=== PATIENT | female | born 1985 | race American Indian/Alaskan Native ===

== ENCOUNTER 2016-10-13 23:43 | Emergency (ER) | payer MEDICAID, OTHER ==
[2016-10-14] MEDS ORDERED: TYLENOL PO ONE (01:52)
[2016-10-14] MEDS ORDERED: FLEXERIL PO ONE (04:19)
[2016-10-14] MEDS ORDERED: NORCO 5/325 PO ONE (04:19)
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
[2016-10-14 05:08] VITALS: BP 134/66
== END 2016-10-14 05:28 | disposition home or self-care (01) ==
LOC: ED 23:43
DX: M79.1 Myalgia (principal); V09.3XXA Pedestrian injured in unspecified traffic accident, initial encounter; Y93.89 Activity, other specified; Y92.89 Other specified places as the place of occurrence of the external cause; Y99.8 Other external cause status
CPT/HCPCS: 99282

== ENCOUNTER 2017-06-03 23:11 | Emergency (ER) | payer SELFPAY ==
[2017-06-04 00:09] LABS: BUN/Creatinine Ratio 17; Blood Urea Nitrogen 10 mg/dL (7-17); Calcium 8.8 mg/dL (8.4-10.2); Hemolysis Index 0
[2017-06-04] MEDS ORDERED: TORADOL IM ONE (00:15)
[2017-06-04] MEDS ORDERED: K-DUR PO ONE (00:15)
[2017-06-04] MEDS ORDERED: ULTRAM PO ONE (00:15)
[2017-06-04] MEDS ORDERED: NORVASC PO ONE (00:16)
[2017-06-04 00:31] LABS: Alanine Aminotransferase 15 units/L (7-56); Albumin 3.8 g/dL (3.9-5)
[2017-06-04 00:41] LABS: Bilirubin,Direct < 0.2 mg/dL (0-0.2)
--- NOTE | 2017-06-04 00:55 | Emergency Department Report ---
ED Extremity Problem HPI - General Chief complaint: Extremity Problem,Nontraumatic Stated complaint: BILATERAL ANKLE EDEMA; BODY PAIN Time Seen by Provider: 06/03/17 23:51 Source: patient, old records reviewed Mode of arrival: Ambulatory Limitations: No Limitations - History of Present Illness Initial comments: 32-year-old female with history of elevated blood pressure presents to the hospital complaints of bilateral lower extremity pain and swelling. Patient states she stands up and is on her feet a lot. She complains of intermittent swelling to her bilateral lower extremities and pain from the feet up to the knees. Pain is aching, constant, rated 8/10 in intensity, worse with palpation and ambulation. Patient states she is not wearing the appropriate shoes. Patient denies chest pain, shortness of breath, or fever. Patient presents with elevated blood pressure. Patient states that her blood pressure was high during her and has been intermittently high for the past 3 years. She denies since her blood pressure home and states it has been elevated. She does not have a primary care doctor is not currently on any blood pressure medication. She denies headache, chest pain, or blurred vision. Severity scale (0 -10): 8 - Related Data Home Medications Medication Instructions Recorded Confirmed Last Taken Vit No.126/Iron/Folic 1 tab QDAY 01/03/14 01/03/14 12/30/13 08:00 [Classic Tablet] Previous Rx's Medication Instructions Recorded Last Taken Type Ferrous Sulfate [Feosol 325 MG tab] 325 mg PO BID #60 tablet 12/31/13 Unknown Rx Ibuprofen [Motrin] 800 mg PO Q8H PRN #30 tablet 12/31/13 Unknown Rx [id number]/Iron Fum/Folic/Docusate 1 each PO QDAY #30 tablet 12/31/13 Unknown Rx [ 19 Tablet] Labetalol [Normodyne TAB] 300 mg PO TID #120 tablet 01/05/14 Unknown Rx NIFEdipine XL [Procardia Xl] 30 mg PO Q12HR #90 tablet 01/05/14 Unknown Rx Cyclobenzaprine [Flexeril] 10 mg PO TID PRN #15 tablet 10/14/16 Unknown Rx Ibuprofen [Motrin] 600 mg PO Q8H PRN #15 tablet 10/14/16 Unknown Rx HYDROcodone/APAP 5-325 [[place] 1 each PO Q6HR PRN #20 tablet 06/04/17 Unknown Rx 5-325 mg TAB] Ibuprofen [Motrin] 800 mg PO Q8HR PRN #30 tablet 06/04/17 Unknown Rx Potassium Chloride [K-Dur] 20 meq PO BID #4 tab 06/04/17 Unknown Rx amLODIPine [Norvasc] 5 mg PO DAILY #30 tab 06/04/17 Unknown Rx Allergies Allergy/AdvReac Type Severity Reaction Status Date / Time No Known Allergies Allergy Unverified 06/03/17 23:33 ED Review of Systems ROS: Stated complaint: BILATERAL ANKLE EDEMA; BODY PAIN Other details as noted in HPI Comment: All other systems reviewed and negative Other: Constitutional: No fevers chills Eyes: No eye pain visual changes or discharge ENT: No ear pain or throat pain Neck: Denies pain Respiratory: Denies cough wheezing shortness of breath Cardiovascular: Denies chest pain, palpitations, syncope GI: Denies abdominal pain, nausea, vomiting, diarrhea : Denies dysuria Musculoskeletal: As per HPI Skin: Denies rash, lesions, erythema Neurologic: Denies headache, numbness, weakness Psychiatric: Denies suicidal ideation, hallucinations ED Past Medical Hx - Past Medical History Previous Medical History?: Yes Hx Congestive Heart Failure: No Hx Diabetes: No Hx Renal Disease: Yes (Patient states that she had "kidney problems") Hx Asthma: No Hx COPD: No - Surgical History Past Surgical History?: Yes Additional Surgical History: X1 - Social History Smoking Status: Never Smoker Substance Use Type: None - Medications Home Medications: Home Medications Medication Instructions Recorded Confirmed Last Taken Type Ferrous Sulfate [Feosol 325 MG tab] 325 mg PO BID #60 tablet 12/31/13 Unknown Rx Ibuprofen [Motrin] 800 mg PO Q8H PRN #30 tablet 12/31/13 Unknown Rx [id number]/Iron Fum/Folic/Docusate 1 each PO QDAY #30 tablet 12/31/13 Unknown Rx [ 19 Tablet] Vit No.126/Iron/Folic 1 tab QDAY 01/03/14 01/03/14 12/30/13 08:00 History [Classic Tablet] Labetalol [Normodyne TAB] 300 mg PO TID #120 tablet 01/05/14 Unknown Rx NIFEdipine XL [Procardia Xl] 30 mg PO Q12HR #90 tablet 01/05/14 Unknown Rx Cyclobenzaprine [Flexeril] 10 mg PO TID PRN #15 tablet 10/14/16 Unknown Rx Ibuprofen [Motrin] 600 mg PO Q8H PRN #15 tablet 10/14/16 Unknown Rx HYDROcodone/APAP 5-325 [[place] 1 each PO Q6HR PRN #20 tablet 06/04/17 Unknown Rx 5-325 mg TAB] Ibuprofen [Motrin] 800 mg PO Q8HR PRN #30 tablet 06/04/17 Unknown Rx Potassium Chloride [K-Dur] 20 meq PO BID #4 tab 06/04/17 Unknown Rx amLODIPine [Norvasc] 5 mg PO DAILY #30 tab 06/04/17 Unknown Rx ED Physical Exam - General Limitations: No Limitations - Other Other exam information: General: No limitations, patient is alert in no acute distress Head exam: Atraumatic, normocephalic Eyes exam: Normal appearance ENT: Moist mucous membrane, normal oropharynx Neck exam: Normal inspection, full range of motion, no meningismus nontender Respiratory exam: Clear to auscultation bilateral, no wheezes, rales, crackles Cardiovascular: Normal rate and rhythm, normal heart sounds Abdomen: Soft, nondistended, and nontender, with normal bowel sounds, no rebound, or guarding Extremity: Full range of motion normal inspection no deformity. I do not appreciate any pitting edema. 2+ DP pulses. Generalized tenderness to palpation of the and legs below the knee. No warmth or erythema. No isolated calf tenderness Back: Normal Inspection, full range of motion, no tenderness Neurologic: Alert, oriented x3, cranial nerves intact, no motor or sensory deficit Psychiatric: normal affect, normal mood Skin: Warm, dry, intact ED Course Vital Signs 06/03/17 06/03/17 06/04/17 23:22 23:56 00:00 Temperature 97.9 F 98.3 F Pulse Rate 86 76 Respiratory 18 18 Rate Blood Pressure 159/115 152/102 Blood Pressure 158/101 [Left] O2 Sat by Pulse 99 99 100 Oximetry 06/04/17 06/04/17 06/04/17 00:30 00:41 01:00 Temperature Pulse Rate 76 Respiratory Rate Blood Pressure 164/117 168/114 155/110 Blood Pressure [Left] O2 Sat by Pulse 100 Oximetry 06/04/17 01:30 Temperature Pulse Rate Respiratory Rate Blood Pressure 158/107 Blood Pressure [Left] O2 Sat by Pulse 100 Oximetry - Reevaluation(s) Reevaluation #1: 06/04/17 00:56 Patient treated with by mouth potassium, Norvasc, tramadol, and IM Toradol ED Medical Decision Making - Lab Data Result diagrams: 06/03/17 23:38 06/03/17 23:38 Lab Results 06/03/17 06/03/17 06/04/17 Range/Units 23:38 23:38 00:01 WBC 7.0 (4.5-11.0) K/mm3 RBC 4.68 (3.65-5.03) M/mm3 Hgb 12.6 (10.1-14.3) gm/dl Hct 39.2 (30.3-42.9) % MCV 84 (79-97) fl MCH 27 L (28-32) pg MCHC 32 (30-34) % RDW 14.8 (13.2-15.2) % Plt Count 352 (140-440) K/mm3 Lymph % (Auto) 33.4 (13.4-35.0) % Dolores % (Auto) 7.3 (0.0-7.3) % Eos % (Auto) 5.6 H (0.0-4.3) % Baso % (Auto) 0.7 (0.0-1.8) % Lymph # 2.3 (1.2-5.4) K/mm3 Dolores # 0.5 (0.0-0.8) K/mm3 Eos # 0.4 (0.0-0.4) K/mm3 Baso # 0.0 (0.0-0.1) K/mm3 Seg Neutrophils % 53.0 (40.0-70.0) % Seg Neutrophils # 3.7 (1.8-7.7) K/mm3 Sodium 141 (137-145) mmol/L Potassium 3.0 L (3.6-5.0) mmol/L Chloride 101.2 (98-107) mmol/L Carbon Dioxide 26 (22-30) mmol/L Anion Gap 17 mmol/L BUN 10 (7-17) mg/dL Creatinine 0.6 L (0.7-1.2) mg/dL Estimated GFR > 60 ml/min BUN/Creatinine Ratio 17 % Glucose 119 H (65-100) mg/dL Calcium 8.8 (8.4-10.2) mg/dL Magnesium (1.7-2.3) mg/dL Total Bilirubin 0.20 (0.1-1.2) mg/dL Direct Bilirubin < 0.2 (0-0.2) mg/dL Indirect Bilirubin 0.0 mg/dL AST 16 (5-40) units/L ALT 15 (7-56) units/L Alkaline Phosphatase 74 (35-129) units/L NT-Pro-B Natriuret Pep 7.65 (0-450) pg/mL Total Protein 7.3 (6.3-8.2) g/dL Albumin 3.8 L (3.9-5) g/dL Albumin/Globulin Ratio 1.1 % 06/04/17 Range/Units 00:01 WBC (4.5-11.0) K/mm3 RBC (3.65-5.03) M/mm3 Hgb (10.1-14.3) gm/dl Hct (30.3-42.9) % MCV (79-97) fl MCH (28-32) pg MCHC (30-34) % RDW (13.2-15.2) % Plt Count (140-440) K/mm3 Lymph % (Auto) (13.4-35.0) % Dolores % (Auto) (0.0-7.3) % Eos % (Auto) (0.0-4.3) % Baso % (Auto) (0.0-1.8) % Lymph # (1.2-5.4) K/mm3 [place]ores # (0.0-0.8) K/mm3 Eos # (0.0-0.4) K/mm3 Baso # (0.0-0.1) K/mm3 Seg Neutrophils % (40.0-70.0) % Seg Neutrophils # (1.8-7.7) K/mm3 Sodium (137-145) mmol/L Potassium (3.6-5.0) mmol/L Chloride (98-107) mmol/L Carbon Dioxide (22-30) mmol/L Anion Gap mmol/L BUN (7-17) mg/dL Creatinine (0.7-1.2) mg/dL Estimated GFR ml/min BUN/Creatinine Ratio % Glucose (65-100) mg/dL Calcium (8.4-10.2) mg/dL Magnesium 1.70 (1.7-2.3) mg/dL Total Bilirubin (0.1-1.2) mg/dL Direct Bilirubin (0-0.2) mg/dL Indirect Bilirubin mg/dL AST (5-40) units/L ALT (7-56) units/L Alkaline Phosphatase (35-129) units/L NT-Pro-B Natriuret Pep (0-450) pg/mL Total Protein (6.3-8.2) g/dL Albumin (3.9-5) g/dL Albumin/Globulin Ratio % - Medical Decision Making Bilateral leg pain and edema No significant edema noted on exam Generalized tenderness to palpation below the knee No signs of heart failure, liver failure, kidney failure, DVT, or infection Patient received tramadol, Toradol with improvement mild improvement in pain. No occult ordered for additional pain relief Compression stockings advised during the day Hypertension History of hypertension but no meds Norvasc initiated in the ED and will be continued No signs of hypertensive emergency at time Hypokalemia Mild Normal magnesium By mouth potassium 40 mg given Potassium will be prescribed for home - Differential Diagnosis arthritis, renal failure, liver failure, heart failure, dependent edema Critical Care Time: No Critical care attestation.: If time is entered above; I have spent that time in minutes in the direct care of this critically ill patient, excluding procedure time. ED Disposition Clinical Impression: Bilateral leg edema, Bilateral leg pain, HTN (hypertension), Hypokalemia Disposition: TO HOME OR SELFCARE Is pt being admited?: No Does the pt Need Aspirin: No Condition: Stable Instructions: Hypertension (ED), Hypokalemia (ED) Additional Instructions: Take the medications as prescribed. It is very important that you follow up with a primary care doctor for further testing and evaluation of the current symptoms. Continue to to monitor your blood pressure because you're medications may need adjustment. Return if symptoms worsen as indicated by your discharge instructions. You may wear compression stockings during the daytime when you're on your feet to decrease swelling. You may get compression stockings at the local drug store. Prescriptions: amLODIPine [Norvasc] 5 mg PO DAILY #30 tab HYDROcodone/APAP 5-325 [[place] 5-325 mg TAB] 1 each PO Q6HR PRN #20 tablet PRN Reason: Pain Ibuprofen [Motrin] 800 mg PO Q8HR PRN #30 tablet PRN Reason: Pain Potassium Chloride [K-Dur] 20 meq PO BID #4 tab Referrals: CHELSY RODRIGUEZ MD [Primary Care Provider] - 3-5 Days [facility] [Provider Group] - 3-5 Days Forms: Work/School Release Form(ED) Time of Disposition: 02:19
[2017-06-04 00:56] LABS: Eosinophils # (Auto) 0.4 K/mm3 (0.0-0.4); Eosinophils % (Auto) 5.6 % (0.0-4.3); Hematocrit 39.2 % (30.3-42.9); Hemoglobin 12.6 gm/dl (10.1-14.3); Lymphocytes # (Auto) 2.3 K/mm3 (1.2-5.4); Lymphocytes % (Auto) 33.4 % (13.4-35.0); Mean Corpuscular HGB Conc 32 % (30-34); Mean Corpuscular Hemoglobin 27 pg (28-32); Mean Corpuscular Volume 84 fl (79-97); Monocytes # (Auto) 0.5 K/mm3 (0.0-0.8); Monocytes % (Auto) 7.3 % (0.0-7.3); Platelet Count 352 K/mm3 (140-440); Red Blood Count 4.68 M/mm3 (3.65-5.03); Red Cell Distribution Width 14.8 % (13.2-15.2)
[2017-06-04 00:59] LABS: Basophils % (Auto) 0.7 % (0.0-1.8)
[2017-06-04] MEDS ORDERED: NORCO 5/325 PO ONE (02:11)
[2017-06-04 03:07] VITALS: BP 126/87
== END 2017-06-04 03:26 | disposition home or self-care (01) ==
LOC: ED 23:11
DX: R60.0 Localized edema (principal); M79.605 Pain in left leg; M79.604 Pain in right leg; I10 Essential (primary) hypertension; E87.6 Hypokalemia
CPT/HCPCS: 36415; 80048; 80074; 83735; 83880; 85025; 96372; 99283; J1885

== ENCOUNTER 2017-07-09 15:16 | Emergency (ER) | payer SELFPAY ==
[2017-07-09 20:05] LABS: HCG Qualitative,Urine Negative (Negative)
[2017-07-09 20:10] LABS: Bacteria,Urine 1+ /HPF (Negative); Bilirubin,Urine NEG (Negative); Blood,Urine NEG (Negative); Color,Urine Yellow (Yellow); Mucus,Urine FEW /HPF; Protein,Urine <15 mg/dL mg/dL (Negative); Urobilinogen,Urine < 2.0 mg/dL (<2.0)
[2017-07-09] MEDS ORDERED: ROCEPHIN IM ONE (20:34)
[2017-07-09] MEDS ORDERED: XYLOCAINE 1% MPF 5 mL INFILTRATI ONE (20:34)
[2017-07-09] MEDS ORDERED: NORVASC PO ONE (21:02)
[2017-07-09] MEDS ORDERED: TYLENOL PO ONE (21:02)
--- NOTE | 2017-07-09 21:05 | Emergency Department Report ---
ED Female HPI - General Chief complaint: Pain General Stated complaint: BODY SORE/UTI Time Seen by Provider: 07/09/17 20:33 Source: patient Mode of arrival: Ambulatory Limitations: No Limitations - History of Present Illness Initial comments: This is a 32-year-old female nontoxic, well nourished in appearance, no acute signs of distress presents to the ED with c/o of dysuria and polyuria 1 week. Patient denies any urinary discharge, vaginal bleeding, abdominal pain, throat pain, chest pain, strength of breath, headache, stiff neck, numbness or tingling. Patient denies any hematuria. Patient also stated that she has body aches that is intermittent for one month. Patient state he has been taking Tylenol and Motrin with mild to moderate relief. Patient denies any back pain or URI symptoms. Patient denies any allergies or past medical history. MD Complaint: dysuria -: week(s) (1) Radiation: non-radiating Severity: mild Severity scale (0 -10): 8 Quality: burning Consistency: constant Improves with: none Worsens with: urination Are you Now?: No Associated Symptoms: dysuria. denies: vaginal discharge, vaginal bleeding, abdominal pain, nausea/vomiting, fever/chills, headaches, loss of appetite, hematuria, rash, seizure, shortness of breath, syncope, weakness - Related Data Home Medications Medication Instructions Recorded Confirmed Last Taken Vit No.126/Iron/Folic 1 tab QDAY 01/03/14 01/03/14 12/30/13 08:00 [Classic Tablet] Previous Rx's Medication Instructions Recorded Last Taken Type Ferrous Sulfate [Feosol 325 MG tab] 325 mg PO BID #60 tablet 12/31/13 Unknown Rx Ibuprofen [Motrin] 800 mg PO Q8H PRN #30 tablet 12/31/13 Unknown Rx Aex857/Iron Fum/Folic/Docusate 1 each PO QDAY #30 tablet 12/31/13 Unknown Rx [ 19 Tablet] Labetalol [Normodyne TAB] 300 mg PO TID #120 tablet 01/05/14 Unknown Rx NIFEdipine XL [Procardia Xl] 30 mg PO Q12HR #90 tablet 01/05/14 Unknown Rx Cyclobenzaprine [Flexeril] 10 mg PO TID PRN #15 tablet 10/14/16 Unknown Rx Ibuprofen [Motrin] 600 mg PO Q8H PRN #15 tablet 10/14/16 Unknown Rx HYDROcodone/APAP 5-325 [[place] 1 each PO Q6HR PRN #20 tablet 06/04/17 Unknown Rx 5-325 mg TAB] Ibuprofen [Motrin] 800 mg PO Q8HR PRN #30 tablet 06/04/17 Unknown Rx Potassium Chloride [K-Dur] 20 meq PO BID #4 tab 06/04/17 Unknown Rx amLODIPine [Norvasc] 5 mg PO DAILY #30 tab 06/04/17 Unknown Rx Sulfamethoxazole/Trimethoprim 1 each PO BID #14 tablet 07/09/17 Unknown Rx [Bactrim DS TAB] amLODIPine [Norvasc] 5 mg PO DAILY #30 tab 07/09/17 Unknown Rx traMADol [Ultram] 50 mg PO Q6HR PRN #12 tablet 07/09/17 Unknown Rx Allergies Allergy/AdvReac Type Severity Reaction Status Date / Time No Known Allergies Allergy Verified 07/09/17 16:33 ED Review of Systems ROS: Stated complaint: BODY SORE/UTI Other details as noted in HPI Constitutional: denies: chills, fever Eyes: denies: eye pain, eye discharge, vision change ENT: denies: ear pain, throat pain Respiratory: denies: cough, shortness of breath, wheezing Cardiovascular: denies: chest pain, palpitations Endocrine: no symptoms reported Gastrointestinal: denies: abdominal pain, nausea, diarrhea Genitourinary: denies: urgency, dysuria, discharge Musculoskeletal: denies: back pain, joint swelling, arthralgia Skin: denies: rash, lesions Neurological: denies: headache, weakness, paresthesias Psychiatric: denies: anxiety, depression Hematological/Lymphatic: denies: easy bleeding, easy bruising ED Past Medical Hx - Past Medical History Previous Medical History?: Yes Hx Congestive Heart Failure: No Hx Diabetes: No Hx Deep Vein Thrombosis: Yes Hx Pulmonary Embolism: Yes Hx Renal Disease: Yes (Patient states that she had "kidney problems") Hx Asthma: No Hx COPD: No - Surgical History Past Surgical History?: Yes Additional Surgical History: X1 - Social History Smoking Status: Never Smoker Substance Use Type: None - Medications Home Medications: Home Medications Medication Instructions Recorded Confirmed Last Taken Type Ferrous Sulfate [Feosol 325 MG tab] 325 mg PO BID #60 tablet 12/31/13 Unknown Rx Ibuprofen [Motrin] 800 mg PO Q8H PRN #30 tablet 12/31/13 Unknown Rx Emz168/Iron Fum/Folic/Docusate 1 each PO QDAY #30 tablet 12/31/13 Unknown Rx [ 19 Tablet] Vit No.126/Iron/Folic 1 tab QDAY 01/03/14 01/03/14 12/30/13 08:00 History [Classic Tablet] Labetalol [Normodyne TAB] 300 mg PO TID #120 tablet 01/05/14 Unknown Rx NIFEdipine XL [Procardia Xl] 30 mg PO Q12HR #90 tablet 01/05/14 Unknown Rx Cyclobenzaprine [Flexeril] 10 mg PO TID PRN #15 tablet 10/14/16 Unknown Rx Ibuprofen [Motrin] 600 mg PO Q8H PRN #15 tablet 10/14/16 Unknown Rx HYDROcodone/APAP 5-325 [[place] 1 each PO Q6HR PRN #20 tablet 06/04/17 Unknown Rx 5-325 mg TAB] Ibuprofen [Motrin] 800 mg PO Q8HR PRN #30 tablet 06/04/17 Unknown Rx Potassium Chloride [K-Dur] 20 meq PO BID #4 tab 06/04/17 Unknown Rx amLODIPine [Norvasc] 5 mg PO DAILY #30 tab 06/04/17 Unknown Rx Sulfamethoxazole/Trimethoprim 1 each PO BID #14 tablet 07/09/17 Unknown Rx [Bactrim DS TAB] amLODIPine [Norvasc] 5 mg PO DAILY #30 tab 07/09/17 Unknown Rx traMADol [Ultram] 50 mg PO Q6HR PRN #12 tablet 07/09/17 Unknown Rx ED Physical Exam - General Limitations: No Limitations General appearance: alert, in no apparent distress - Head Head exam: Present: atraumatic, normocephalic - Eye Eye exam: Present: normal appearance Pupils: Present: normal accommodation - ENT ENT exam: Present: normal exam, mucous membranes moist - Neck Neck exam: Present: normal inspection, full ROM. Absent: tenderness, meningismus - Respiratory Respiratory exam: Present: normal lung sounds bilaterally. Absent: respiratory distress, wheezes, rales, rhonchi, stridor, chest wall tenderness, accessory muscle use, decreased breath sounds, prolonged expiratory - Cardiovascular Cardiovascular Exam: Present: regular rate, normal rhythm, normal heart sounds. Absent: bradycardia, tachycardia, irregular rhythm, systolic murmur, diastolic murmur, rubs, gallop - GI/Abdominal GI/Abdominal exam: Present: soft, normal bowel sounds. Absent: distended, tenderness, guarding, rebound, rigid, diminished bowel sounds - Rectal Rectal exam: Present: deferred - Extremities Exam Extremities exam: Present: normal inspection, full ROM, normal capillary refill - Back Exam Back exam: Present: normal inspection, full ROM. Absent: tenderness, CVA tenderness (R), CVA tenderness (L), muscle spasm, paraspinal tenderness, vertebral tenderness, rash noted - Neurological Exam Neurological exam: Present: alert, oriented X3, normal gait - Psychiatric Psychiatric exam: Present: normal affect, normal mood - Skin Skin exam: Present: warm, dry, intact, normal color. Absent: rash ED Course Vital Signs 07/09/17 16:26 Temperature 98.5 F Pulse Rate 86 Respiratory 18 Rate Blood Pressure 153/102 O2 Sat by Pulse 100 Oximetry - Reevaluation(s) Reevaluation #1: 07/09/17 21:12 Patient is speaking in full sentences with no signs of distress noted. - Consultations Consultation #1: 07/09/17 21:12 Patient has been consulted with Dr. Mcfarland about patient history, physical exam, and labs and examined and screened patient and agrees to ED plan of care and discharge plan of care. ED Medical Decision Making - Medical Decision Making This is a 32-year-old female that presents with UTI and body aches. Patient is stable and was examined by me and Dr. Mcfarland. He will he indicates UTI with elevated WBCs, leukocytes, and rbc's. There is no CVA tenderness. Patient received 1 g Rocephin in the ED patient is discharged with Bactrim. Patient also received Tylenol. Patient is requesting for several medication and Tylenol received Ultram and discharged for body aches. There is no URI symptoms or any other symptoms. Urine culture pending. Patient was instructed to Follow-up with a primary care doctor in 3-5 days or if symptoms worsen and continue return to emergency room as soon as possible. At time of discharge, the patient does not seem toxic or ill in appearance. No acute signs of distress noted. Patient agrees to discharge treatment plan of care. No further questions noted by the patient. Patient also stated that she is out of her amlodipine medication 5 mg daily so the patient received 1 dose here as well as a prescription to go home with. Critical care attestation.: If time is entered above; I have spent that time in minutes in the direct care of this critically ill patient, excluding procedure time. ED Disposition Clinical Impression: Body aches UTI (urinary tract infection) Qualifiers: Urinary tract infection type: site unspecified Hematuria presence: with hematuria Qualified Code(s): N39.0 - Urinary tract infection, site not specified ; R31.9 - Hematuria, unspecified Hypertension Qualifiers: Hypertension type: unspecified Qualified Code(s): I10 - Essential (primary) hypertension Disposition: TO HOME OR SELFCARE Is pt being admited?: No Does the pt Need Aspirin: No Condition: Stable Instructions: Urinary Tract Infection in Women (ED), Hypertension (ED), Sulfamethoxazole/Trimethoprim (By mouth) Additional Instructions: Follow-up with a primary care doctor in 3-5 days or if symptoms worsen and continue return to emergency room as soon as possible. Keep a daily diary of her blood pressure and presented to primary care doctor. Prescriptions: amLODIPine [Norvasc] 5 mg PO DAILY #30 tab Sulfamethoxazole/Trimethoprim [Bactrim DS TAB] 1 each PO BID #14 tablet traMADol [Ultram] 50 mg PO Q6HR PRN #12 tablet PRN Reason: Pain Referrals: PRIMARY CARE, [Primary Care Provider] - 3-5 Days FE MAYERS MD [Staff Physician] - 3-5 Days [facility] [Outside] - 3-5 Days [facility] [Outside] - 3-5 Days Forms: Work/School Release Form(ED)
[2017-07-09 21:12] VITALS: BP 163/100
== END 2017-07-09 21:46 | disposition home or self-care (01) ==
LOC: ED 15:16
DX: N39.0 Urinary tract infection, site not specified (principal); I10 Essential (primary) hypertension; Z86.718 Personal history of other venous thrombosis and embolism
CPT/HCPCS: 81001; 81025; 87076; 87086; 87186; 96372; 99283; J0696